=== PATIENT | female | born 1950 | race Caucasian/White ===

== ENCOUNTER 2018-09-27 11:35 | Emergency (ER) | payer BC ==
--- NOTE | 2018-09-27 12:03 | EDM.PDOC ---
ED HPI GENERAL MEDICAL PROBLEM - General Chief Complaint: Syncope Stated Complaint: MEDICAL [facility] Time Seen by Provider: 09/27/18 11:53 Source of Information: Reports: Patient History Limitations: Reports: No Limitations - History of Present Illness INITIAL COMMENTS - FREE TEXT/NARRATIVE: Fell this morning while in shower. She states she had intercourse, then went to shower [place] confused in the shower The next thing she new, she was on the floor of tub. She has a contusion on the left side of her back, about 6-8 inches. Hurts to take a deep breath States she is otherwise healthy. States she hasn't had anything to eat yet today. Duration: Hour(s): (1 hour ago) Location: Reports: Head, Back Quality: Reports: Ache Severity: Moderate Improves with: Reports: None Worsens with: Reports: None Back Pain Score (Numeric/FACES): 8 - Related Data Allergies Allergy/AdvReac Type Severity Reaction Status Date / Time ciprofloxacin [From Cipro] Allergy Rash Verified 09/27/18 11:52 Penicillins Allergy Itching Verified 09/27/18 11:52 Sulfa (Sulfonamide Allergy Jaundice Verified 09/27/18 11:52 Antibiotics) cat gut suture Allergy Other Uncoded 09/27/18 11:52 Home Meds: Home Meds Alendronate Sodium [Fosamax] 70 mg PO WEEKLY 09/27/18 [History] Piroxicam [Feldene] 20 mg PO DAILY PRN 09/27/18 [History] Social & Family History - Tobacco Use Smoking Status *Q: Never Smoker Second Hand Smoke Exposure: No - Caffeine Use Caffeine Use: Reports: Coffee, Soda - Alcohol Use Days Per Week of Alcohol Use: 3 Number of Drinks Per Day: 3 Total Drinks Per Week: 9 - Recreational Drug Use Recreational Drug Use: No ED ROS GENERAL - Review of Systems Review Of Systems: See Below Constitutional: Reports: No Symptoms HEENT: Reports: No Symptoms Respiratory: Reports: Other (hurts to breathe) Cardiovascular: Reports: No Symptoms GI/Abdominal: Reports: No Symptoms Musculoskeletal: Reports: Back Pain Skin: Reports: Other (abrasion on the left side of back) Neurological: Reports: Confusion, Dizziness, Syncope Psychiatric: Reports: No Symptoms ED EXAM, GENERAL - Physical Exam Exam: See Below Exam Limited By: No Limitations General Appearance: Alert, WD/WN, No Apparent Distress Eye Exam: Bilateral Eye: EOMI, PERRL Ears: Normal External Exam Nose: Normal Inspection, Normal Mucosa Throat/Mouth: Normal Inspection, Normal Oropharynx, No Airway Compromise Head: Atraumatic, Normocephalic Neck: Normal Inspection, Supple, Non-Tender, Full Range of Motion Respiratory/Chest: No Respiratory Distress, Lungs Clear, Normal Breath Sounds Cardiovascular: Regular Rate, Rhythm GI/Abdominal: Normal Bowel Sounds, Soft, Non-Tender Back Exam: Other (scratch to her left side of her back from mid lung to left flank area. Superficial) Extremities: Normal Inspection, Normal Range of Motion Neurological: Alert, Oriented, CN II-XII Intact, Normal Cognition, Normal Gait, Normal Reflexes, No Motor/Sensory Deficits Psychiatric: Normal Affect, Normal Mood Skin Exam: Warm, Dry, Intact Course - Vital Signs Last Recorded V/S: Last Vital Signs Temp 96 F 09/27/18 11:48 Pulse 58 L 09/27/18 11:48 Resp 16 09/27/18 11:48 BP 135/71 09/27/18 11:48 Pulse Ox 100 09/27/18 11:48 - Orders/Labs/Meds Labs: Laboratory Tests 09/27/18 09/27/18 Range/Units 12:10 12:10 WBC 11.3 H (4.5-11.0) K/uL RBC 4.01 (3.30-5.50) M/uL Hgb 12.9 (12.0-15.0) g/dL Hct 39.7 (36.0-48.0) % MCV 99 H (80-98) fL MCH 32 H (27-31) pg MCHC 33 (32-36) % Plt Count 287 (150-400) K/uL Neut % (Auto) 88 H (36-66) % Lymph % (Auto) 7 L (24-44) % [place] % (Auto) 4 (2-6) % Eos % (Auto) 1 L (2-4) % Baso % (Auto) 1 (0-1) % Sodium 140 (140-148) mmol/L Potassium 4.1 (3.6-5.2) mmol/L Chloride 103 (100-108) mmol/L Carbon Dioxide 27 (21-32) mmol/L Anion Gap 9.7 (5.0-14.0) mmol/L BUN 14 (7-18) mg/dL Creatinine 0.7 (0.6-1.0) mg/dL Est Cr Clr Drug Dosing 80.95 mL/min Estimated GFR (MDRD) > 60 (>60) Glucose 128 H (74-106) mg/dL Calcium 8.8 (8.5-10.1) mg/dL Total Bilirubin 0.3 (0.2-1.0) mg/dL AST 23 (15-37) U/L ALT 29 (12-78) U/L Alkaline Phosphatase 49 (46-116) U/L Total Protein 6.9 (6.4-8.2) g/dL Albumin 3.8 (3.4-5.0) g/dL Globulin 3.1 (2.3-3.5) g/dL Albumin/Globulin Ratio 1.2 (1.2-2.2) Meds: Medications Discontinued Medications Generic Name Dose Route Start Last Admin Trade Name Freq PRN Reason Stop Dose Admin Acetaminophen 1,000 mg 09/27/18 13:11 09/27/18 13:34 Tylenol Extra Strength PO 09/27/18 13:12 Not Given ONETIME ONE Sodium Chloride 1,000 mls @ 999 mls/hr 09/27/18 12:15 09/27/18 12:08 Normal Saline IV 999 mls/hr ASDIRECTED GWYN Administration Sodium Chloride 1,000 mls @ 75 mls/hr 09/27/18 13:15 Normal Saline IV ASDIRECTED GWYN - Re-Assessments/Exams Free Text/Narrative Re-Assessment/Exam: 09/27/18 18:[address] and labs with patient. Departure - Departure Time of Disposition: 13:09 Disposition: Home, Self-Care 01 Condition: Good Clinical Impression: Syncope, Back pain - Discharge Information *PRESCRIPTION DRUG MONITORING PROGRAM REVIEWED*: Not Applicable *COPY OF PRESCRIPTION DRUG MONITORING REPORT IN PATIENT MART: Not Applicable Instructions: Acute Back Pain, Adult, Syncope, [id number] Referrals: PCP,None [Primary Care Provider] - Forms: ED Department Discharge Additional Instructions: Stay hydrated Rest Change positions slowly Tylenol for pain; take as directed Ice to affected area for comfort. Follow up with your doctor; as we discussed, the CT only shows so much; you should discuss case with your doctor and decide if further imagining needs to be done. Call with questions Return if symptoms worsen. - Problem List & Annotations (1) Syncope SNOMED Code(s): 590841408 Code(s): R55 - SYNCOPE AND COLLAPSE Status: Acute Priority: Medium Qualifiers: Syncope type: unspecified Qualified Code(s): R55 - Syncope and collapse
[2018-09-27] MEDS ORDERED: Sodium Chloride 0.9% 1,000 ML IV SCH ×2 (12:15→13:15)
--- NOTE | 2018-09-27 13:01 | CRLCR ---
Indication: Fell in tub Technique: PA and lateral views of the chest were obtained. Comparison: None Findings: The heart is normal in size. The lungs are clear. No infiltrate, pleural effusion, or pneumothorax is identified. Impression: No acute cardiopulmonary process. Dictated by Selina Rosales MD @ Sep 27 2018 12:58PM Signed by Dr. Selina Rosales @ Sep 27 2018 12:59PM
--- NOTE | 2018-09-27 13:07 | CRLCT ---
Indication: Syncopal episode. Technique: Multiple contiguous axial images were obtained from the skullbase to the vertex without intravenous contrast enhancement. Please note that all CT scans at this facility use dose modulation, iterative reconstruction, and/or weight-based dosing when appropriate to reduce radiation dose to as low as reasonably achievable. Comparison: None Findings: The ventricles are mildly enlarged consistent with the size of the sulci. No intra-axial or extra-axial hemorrhage is identified. No mass, mass effect or midline shift is seen. The bony calvarium is intact. Mucosal thickening is identified within the right maxillary sinus. Impression: No acute intracranial process. Diffuse volume loss, mild. Right maxillary sinusitis. Please note that all CT scans at this facility use dose modulation, iterative reconstruction, and/or weight-based dosing when appropriate to reduce radiation dose to as low as reasonably achievable. Dictated by Selina Rosales MD @ Sep 27 2018 1:05PM Signed by Dr. Selina Rosales @ Sep 27 2018 1:06PM
[2018-09-27] MEDS ORDERED: Acetaminophen 500 MG Tab PO ONE (13:11)
== END 2018-09-27 13:33 | disposition home or self-care (01) ==
LOC: JP.ED 11:35
DX: R55 Syncope and collapse (principal); S30.811A Abrasion of abdominal wall, initial encounter; S20.412A Abrasion of left back wall of thorax, initial encounter; Z88.0 Allergy status to penicillin; Z88.1 Allergy status to other antibiotic agents; Z88.2 Allergy status to sulfonamides; W19.XXXA Unspecified fall, initial encounter
CPT/HCPCS: 36415; 70450; 71046; 80053; 85025; 96360; 99284; J7030